=== PATIENT | female | born 1985 | race Hispanic/Latino ===

== ENCOUNTER 2017-08-16 07:16 | Emergency (ER) | payer BC ==
[2017-08-16] MEDS ORDERED: HYDROCODONE/ACETAMINOPHEN 5/325 MG TAB ONE (07:38)
[2017-08-16] MEDS ORDERED: LIDOCAINE HCL 1% 20 ML VIAL ONE (07:38)
== END 2017-08-16 08:50 | disposition home or self-care (01) ==
LOC: EDH 07:16
DX: S71.131A Puncture wound without foreign body, right thigh, initial encounter (principal); Z72.0 Tobacco use; W45.8XXA Other foreign body or object entering through skin, initial encounter; Y93.89 Activity, other specified; Y92.810 Car as the place of occurrence of the external cause; Y99.8 Other external cause status